=== PATIENT | male | born 1995 | race Caucasian/White ===

== ENCOUNTER 2019-09-29 15:44 | Emergency (ER) | payer OTHER ==
[2019-09-29] MEDS ORDERED: ceFAZolin 1 GM Vial IVPUSH ONE (16:12)
--- NOTE | 2019-09-29 16:12 | EDM.PDOC ---
ED HPI GENERAL MEDICAL PROBLEM - General Chief Complaint: Bite:Animal, Insect Stated Complaint: INFECTED HAND Time Seen by Provider: 09/29/19 16:00 Source of Information: Reports: Patient History Limitations: Reports: No Limitations - History of Present Illness INITIAL COMMENTS - FREE TEXT/NARRATIVE: Patient states he was bitten the top of the right hand yesterday by a friend's cat about 10 AM states he did wash it apply hydrogen peroxide to it is been put Neosporin on it states it is worse this morning with swelling and redness. Patient states that the cat has all his shots up-to-date He has no medical issues and his tetanus is up-to-date he has no other complaints at this time Duration: Day(s): Quality: Reports: Pressure Severity: Mild Improves with: Reports: None Worsens with: Reports: None Associated Symptoms: Reports: No Other Symptoms Review of Systems - Review of Systems Review Of Systems: See Below Constitutional: Reports: No Symptoms Eyes: Reports: No Symptoms Ears: Reports: No Symptoms Nose: Reports: No Symptoms Mouth/Throat: Reports: No Symptoms Respiratory: Reports: No Symptoms Cardiovascular: Reports: No Symptoms GI/Abdominal: Reports: No Symptoms Genitourinary: Reports: No Symptoms Musculoskeletal: Reports: Hand Pain. Denies: Joint Pain, Joint Swelling Skin: Reports: Erythema Neurological: Reports: No Symptoms. Denies: Paresthesia, Tingling, Weakness Psychiatric: Reports: No Symptoms ED EXAM, GENERAL - Physical Exam Exam: See Below Exam Limited By: No Limitations General Appearance: Alert, WD/WN, No Apparent Distress Extremities: Normal Range of Motion, Normal Capillary Refill, Other (Exam of the right hand is noted to have positive edema with erythema noted puncture wound to the posterior aspect just above the third and fourth knuckle there is no discharge noted but positive streaking and calor noted to the area in the hand patient has full range of motion normal opposition abduction adduction positive radius and ulna with cap refill he is fully able to make a fist there is no noted adenopathy Trocular or or axillary no signs of any tendonsynovitis). No: Normal Inspection, Non-Tender Neurological: Alert, Oriented, CN II-XII Intact, Normal Cognition, Normal Gait, No Motor/Sensory Deficits Psychiatric: Normal Affect, Normal Mood Skin Exam: Warm, Dry, Intact, Erythema. No: Normal Color, No Rash Lymphatic: No Adenopathy Course - Vital Signs Text/Narrative:: X-ray will be taken secondary to infection patient will be started on Augmentin 875 twice daily x12 days and given 1 g Ancef IM No fractures noted on x-ray Tetanus is up-to-date - Orders/Labs/Meds Meds: Medications Discontinued Medications Generic Name Dose Route Start Last Admin Trade Name Hailey PRN Reason Stop Dose Admin Amoxicillin/Clavulanate Potassium 1 packet 09/29/19 16:38 09/29/19 16:49 Take Home: Amox/Clavulanate 875-12, 2 Tab Pac PO 09/29/19 16:39 1 packet ONETIME ONE Administration Cefazolin Sodium 1 gm 09/29/19 16:12 09/29/19 16:29 Ancef IVPUSH 09/29/19 16:13 1 gm ONETIME ONE Administration Departure - Departure Time of Disposition: 16:35 Disposition: Home, Self-Care 01 Condition: Good Clinical Impression: Cat bite of hand - Discharge Information *PRESCRIPTION DRUG MONITORING PROGRAM REVIEWED*: No *COPY OF PRESCRIPTION DRUG MONITORING REPORT IN PATIENT PAULY: No Instructions: Animal Bite, Adult Referrals: PCP,Not In Area [Primary Care Provider] - Forms: ED Department Discharge Additional Instructions: Make sure you take all of your antibiotics Augmentin 875 mg 1 every 12 hours x12 days finish the entire amount You may soak your hand in warm soapy water with Epson salt 3 times a day Return to the emergency room if anything changes or gets worse such as increased pain increased swelling increased fever to the area or you cannot bend her fingers or have pain with bending your fingers are if anything feels like it is not normal - Problem List & Annotations (1) Cat bite of hand SNOMED Code(s): 308622269 Code(s): S61.459A - OPEN BITE OF UNSPECIFIED HAND, INITIAL ENCOUNTER; W55.01XA - BITTEN BY CAT, INITIAL ENCOUNTER Status: Acute Current Visit: Yes
[2019-09-29] MEDS ORDERED: Take Home: Amoxicillin/Clavulanate K 875-125 MG Tab, 2 Tab Pack PO ONE (16:38)
--- NOTE | 2019-09-29 16:54 | CR ---
[id number] RAD/RAD Hand Right 2V EXAM: RAD Hand Right 2V CLINICAL DATA: TRAUMA COMPARISON: NO PREVIOUS SIMILAR EXAM IS AVAILABLE. FINDINGS: No fracture or dislocation is seen. There is no radiopaque foreign body in the soft tissues. There is no air in the soft tissues. There is no cortical thickening or periosteal reaction either. IMPRESSION: NEGATIVE PLAIN FILM EXAM. Serge Porter MD 09/29/19 1898 Thank you for allowing us to participate in the care of your patient.
== END 2019-09-29 17:00 | disposition home or self-care (01) ==
LOC: VM.ED 15:44
DX: S61.451A Open bite of right hand, initial encounter (principal); W55.01XA Bitten by cat, initial encounter
CPT/HCPCS: 73120; 99283; A9270; J0690